=== PATIENT | female | born 1955 | race Caucasian/White ===

== ENCOUNTER → 2023-10-30 07:46 | Outpatient (REF) | payer MEDICARE, OTHER, SELFPAY | LOC: RAD 07:46 | PROVIDERS: ATTENDING PHYSICIAN Internal Medicine Hematology & Oncology; FAMILY PHYSICIAN Family Medicine | DX: C50.111 Malignant neoplasm of central portion of right female breast (principal); C79.51 Secondary malignant neoplasm of bone; C78.00 Secondary malignant neoplasm of unspecified lung; D53.9 Nutritional anemia, unspecified | CPT/HCPCS: 71260; 74177; 78306; A9503; Q9967 ==

== ENCOUNTER 2023-11-21 13:58 | Inpatient (IN) | payer OTHER, SELFPAY ==
[2023-11-21] VITALS (7 sets, daily range): BP systolic 121–192; BP diastolic 44–97; BMI 28.3
[2023-11-21 11:46] LABS: % Basophils 0.6 % (0-2); % Immature Granulocytes 0.6 % (0-0.5); % Lymphocytes 3.6 % (20.5-51.1); % Monocytes 3.6 % (1.7-9.3); % Neutrophils 91.6 % (42.2-75.2); Absolute Lymphocytes 0.2 10^3/uL (1.2-3.4); Absolute Monocytes 0.2 10^3/uL (0.1-0.6); Absolute Neutrophils 4.9 10^3/uL (1.4-6.5); Hematocrit 28.6 % (37.0-47.0); Hemoglobin 10.1 g/dL (12.0-16.0); Mean Corp Hgb Conc. 35.3 g/dL (33.0-37.0); Mean Corpuscular Hgb 36.5 pg (27.0-31.0); Mean Corpuscular Volume 103.2 fL (81.0-99.0); Mean Platelet Volume 9.4 fL (7.4-10.4); Nucleated Red Blood Cells % 0 %; Platelet Count 172 10^3/uL (130-400); Red Blood Cell Count 2.77 10^6/uL (4.20-5.40); Red Cell Dist. Width 16.1 % (11.5-14.5); White Blood Cell Count 5.3 10^3/uL (4.8-10.8)
--- NOTE | 2023-11-21 11:53 | PHANOTE ---
11/21/2023, med rec tech, spoke to pt. to obtain their med. history; pt. states to take Ibrance 125 mg QPM; could not confirm with pharmacy fill data or ECW.
[2023-11-21 12:04] LABS: Lactic Acid 2.7 mmol/L (0.7-2.0)
[2023-11-21 12:05] LABS: ALT (SGPT) 23 U/L (0-35); AST (SGOT) 26 U/L (14-36); Albumin 4.9 g/dl (3.5-5.0); Alkaline Phosphatase 64 U/L (38-126); Blood Urea Nitrogen 31 mg/dl (7-17); Calcium 9.9 mg/dl (8.4-10.2); Carbon Dioxide 19 mmol/L (22-30); Chloride 105 mmol/L (98-107); Glucose 155 mg/dl (70-99); Potassium 3.9 mmol/L (3.5-5.1); Sodium 137 mmol/L (135-145); Total Bilirubin 0.6 mg/dl (0.2-1.3); Total Protein 8.1 g/dl (6.3-8.2); eGFR 45.35
[2023-11-21 12:11] LABS: Urine Albumin 2+ (Neg - Trace); Urine Bilirubin Negative (Negative); Urine Character Very Cloudy (Clear); Urine Color Yellow; Urine Glucose Negative (Negative); Urine Ketone Negative (Negative); Urine Leukocyte 2+ (Negative); Urine Nitrite Positive (Negative); Urine Occult Blood 4+ (Negative); Urine Urobilinogen Negative (Neg - 1+)
[2023-11-21] MEDS: MAXIPIME 2000 MG IV ×2 (12:36→23:27)
[2023-11-21 12:43] LABS: COVID-19 Antigen Negative (Negative)
[2023-11-21 13:33] LABS: Urine Mucus Few; Urine Red Blood Cell >100 /HPF (0-2); Urine Squamous Cell 0-2 /LPF (Few)
[2023-11-21 13:34] LABS: Urine Bacteria Many (Negative); Urine White Cell 40-50 /HPF (0-5)
--- NOTE | 2023-11-21 13:41 | HPS.HSE ---
Addendum entered and electronically signed by Oniel Mccracken MD 11/22/23 08:05:
UA report updated.
have significant pyuria/bacteriuria - await urine cs report
maintain on abx
Original Note:
Family Physician
-
Family Physician: NOT KNOW UNKNOWN - PT DOES
Chief Complaint
-
Confusion, right leg paresthesia
History of Present Illness
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
having new onset of confusion and right leg paresthesia. Symptoms are relatively acute onset within 2 to 3 days. Patient pleasantly disoriented in ER but able to provide some information. Most of the information gathered from patient family at
bedside. No reported agitation or behavioral issues.
Patient complained some right leg paresthesia yesterday although currently denying any numbness to me. No other focal neurological deficit weakness reported. Patient does have some slurring of words slightly noted by family.
No shortness of breath/chest pain/palpitation. No abdominal complaints. Patient denies any dysuria/burning.
Medical History
Past Medical History
Past Medical History: Reports Other
Additional Past Medical History:
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
Past Surgical History: Reports Other
Social History
Tobacco: Former Smoker
Alcohol: None
Drug: None
Personal:
Living: With Family
Family History
Family History: Not pertinent
Allergies / Home Medications
Allergies reflects when Allergies were last updated in [facility]
Home Medications with original date entered in [facility]
Allergy/Medication List:
Allergies
Allergy/AdvReac Type Severity Reaction Status Date / Time
No Known Allergies Allergy Unverified 05/13/21 11:16
Home Medications
B-complex with vitamin C 1 cap PO DAILY Supplement 05/13/21
letrozole 2.5 mg tablet (Femara) 2.5 mg PO DAILY 10/28/21
palbociclib 125 mg tablet (Ibrance) 125 mg PO QPM 10/28/21
zinc amino acid chelate 50 mg tablet 50 mg PO DAILY 10/28/21
chlorhexidine gluconate 0.12 % mouthwash 15 ml buccal BID 11/21/23
cholecalciferol (vitamin D3) 25 mcg (1,000 unit) tablet 25 mcg PO DAILY 11/21/23
famotidine 40 mg tablet 40 mg PO QPM 11/21/23
guaifenesin 600 mg tablet, extended release 12 hr (Mucus Relief ER) 600 mg PO BID 11/21/23
naproxen sodium 220 mg tablet (Aleve) 220 mg PO DAILYPRN PRN mild pain 11/21/23
valsartan 160 mg-hydrochlorothiazide 25 mg tablet 1 tab PO QPM 11/21/23
Review of Systems
-
A 12 point ROS was completed and negative except as noted: Yes
Physical Exam
Vital Signs
Vital Signs
Temp Pulse Resp BP Pulse Ox
100.0 F 111 30 129/49 94
11/21/23 11:12 11/21/23 12:45 11/21/23 12:45 11/21/23 12:38 11/21/23 12:38
Physical Exam
General: No Apparent Distress
HEENT: Atraumatic; No Oxygen
Respiratory: Clear
Cardiac: S1/S2 and Regular Rhythm; No Murmur or Rub
GI: Soft, Non Tender, Non Distended and Normal Bowel Sounds; No Organomegaly
Rectal: Deferred by Provider
Musculoskeletal: No Clubbing, No Cyanosis and No Edema
Skin: No Rash
Neuro: Awake, Alert and Nonfocal/grossly intact; No Oriented
Psych: Calm
Laboratory Results
-
11/21/23 11:36
11/21/23 11:36
Laboratory Results
Lactic Acid 2.7 mmol/L (0.7-2.0) H 11/21/23 11:36
Total Bilirubin 0.6 mg/dl (0.2-1.3) 11/21/23 11:36
AST 26 U/L (14-36) 11/21/23 11:36
ALT 23 U/L (0-35) 11/21/23 11:36
Alkaline Phosphatase 64 U/L (38-126) 11/21/23 11:36
Data Reviewed
-
CT Scan: Image Personally Visualized and interpreted, Discussed with Patient and Discussed with Family
Lab Data: Labs Reviewed by me, Discussed with Patient and Discussed with Family
Impression/Plan
-
CT head
1. Focus of hypoattenuation within the right parietal lobe, measuring 1.2 cm in diameter, also likely unchanged. Infarct in this region is not excluded, consider MRI brain as clinically appropriate.
2. Mild cerebral atrophy.

1. Acute toxic metabolic encephalopathy
-New onset of confusion/disorientation and last 48-72 hrs
-Sepsis being ruled out with reported mild fever and tachycardia in ER. Immunosuppressed with immunotherapy.
-Chest x-ray showing pneumonia although in comparison to CT chest likely metastatic disease of lung
-UA did not show significant pyuria bacteriuria. Blood culture collected in ER.
-Patient not on any narcotic therapy.
-Have history of metastatic breast cancer involving lung/bone including calvarium -check MRI brain with and without contrast
-Continue supportive care
2. Sepsis
-Mild reported fever and tachycardia in ER.
-Patient on immuno therapy and high risk for infection
-COVID-negative. UA relatively clear
-Chest x-ray during his pneumonia and left lower lobe although metastatic disease and compared with CT scan from 10/29
-Blood culture collected
-Patient got cefepime in ER, continue for now.
3. Metastatic breast cancer
Metastasis involving lung/multiple bone
-Currently on letrozole and ibrance therapy
-f/us with [facility]
-Bone scan from past reviewed and have diffuse bony involvement
-Continue on ibrance/letrozole
4. Essential HTN
-Maintained on valsartan/hydrochlorothiazide
DVT prophylaxis -Lovenox
DNR/DNI -confirmed with patient and family bedside
Total time spent : 77 mins
I personally saw and examined the patient.
I have reviewed all diagnostic interpretations and treatment plans as written.
Time includes patient management by me, time spent at the patients bedside, time to review lab and imaging results, discussing patient care, documentation in the medical record, and time spent with the family or caregiver and discussing care plan
with RN/Consultants.
--- NOTE | 2023-11-21 14:20 | PHA.VAN.IN ---
Assessment
- Assessment
Renal Function: Unknown baseline
Concomitant Antimicrobials: cefepime
Plan
- Plan
Initial / Loading Dose: 2000mg - administration pending
Maintenance Regimen: dosing by level
Monitoring: random 11/21 0600
MRSA Screen: Ordered per protocol
Pharmacokinetics Vancomycin I
- -
Patient Age: 68
Patient Sex: Female
Vancomycin Day #: 1
Indication: Other
Requesting Provider: Dr. Mccracken
Pertinent Antimicrobial Allergies:
NKDA
Height / Weight:
Actual Weight 70.6 kg
Pertinent Past Medical History: Stage IV breast carcinoma
- Vital Signs / Lab Results
Temp Pulse Resp BP Pulse Ox
103.1 F H 111 30 129/49 94
11/21/23 13:58 11/21/23 12:45 11/21/23 12:45 11/21/23 12:38 11/21/23 12:38
Lab Results - Hematology
11/21/23
11:36
WBC 5.3
Lab Results - Chemistry
11/21/23
11:36
BUN 31 H
Creatinine 1.3 H
Albumin 4.9
11/21/23
11:36
Lactic Acid 2.7 H
Lab Results - Urine
11/21/23
12:01
Urine Nitrite (Reflex) Positive A
Leukocyte Esterase Rfl 2+ A
Urine WBC (Reflex) 40-50 A
Ur Squamous Epith Cells 0-2
Urine Bacteria (Reflex) Many A
Microbiology Results
11/21/23 11:47 Influenza Types A & B (MAEGAN) - Final
Nasal Swab Negative for Influenza A & B, NAAT
Negative results must be combined with clinical observations
and patient history.
Nucleic Acid Amplification test (NAAT)performed on the
[employer] platform.
[2023-11-21] MEDS: TYLENOL 650 MG PO ×2 (14:21→23:30)
--- NOTE | 2023-11-21 15:20 | PTCARENOTE ---
11/20- Patient transferred and oriented to unit without issue. Patient is currently AAOX3, no cognitive deficits currently observed; Neurological checks WNL with equal sensory/motor movementX4 extremities; +pulses/sensationX4; Skin CDI except a
fully granulated scab on R-hyman. Patient denies any needs or complaints at this time.
[2023-11-21] MEDS: MAXIPIME IV ×2 (16:13)
[2023-11-21] MEDS: STERILE WATER FOR INJECTION IV ×2 (16:13)
[2023-11-21] MEDS: LR 1000 IV (16:19)
[2023-11-21] MEDS: VANCOCIN 540 MG IV (16:19)
[2023-11-21] MEDS: DIOVAN 160 MG PO (17:00)
[2023-11-21] MEDS: ORETIC 25 MG PO (17:01)
[2023-11-21] MEDS: PEPCID 20 MG PO (17:01)
[2023-11-21] MEDS: LOVENOX SC (17:02)
[2023-11-21] MEDS: MUCINEX 600 MG PO (20:24)
[2023-11-21] MEDS: STERILE WATER FOR INJECTION 10 ML IV (23:27)
--- NOTE | 2023-11-22 07:50 | PTCARENOTE ---
11/21- Observed patient mildly diaphoretic with chills; flushed face, lethargic and arousable only with assertive tactile stimulus. She is AAOX3 but flat affect, slow response time. JS=219, Sinus Tachy on Telemetry, RR=12, BP-131/62, T=102.9,
POX=89% on RA. Qzavduewg=501. Notified Physician. Applied O2 via NC at 2L. POX returned to 94% on 2L. Patient currently on LR @60ml/hr pumping without issue at this time. Patient is awake enough to take AM pills as ordered along with PRN
Tylenol for the fever. Continue to Observe.
[2023-11-22] MEDS: FEMARA 2.5 MG PO (07:52)
[2023-11-22] MEDS: MUCINEX 600 MG PO ×2 (07:52→20:18)
[2023-11-22 08:03] LABS: Glucose - Point of Care 168 mg/dl (70-99)
[2023-11-22] MEDS: TYLENOL 650 MG PO (08:07)
--- NOTE | 2023-11-22 08:30 | PTCARENOTE ---
11/21- Patient is less clammy; no diaphoresis currently; Face is noticeably less flushed than earlier. Patient is still drowsy but much more alert, arousable verbally. T=101.5. POX=94% on 2L. Received Critical Result of G- Bacilli in Blood
Culture. Notified Physician. Continue to monitor.
--- NOTE | 2023-11-22 08:48 | CON.ONC ---
Impression
Impression
Stage IV metastatic breast cancer (liver, bone on Ibrance/Letrozole)
Invasive ductal carcinoma (2020)
Known growing lung nodule and new skull lesion
Acute change in mental status/TME
Lethargy
RLE paraesthesia
+E. Coli UTI
Sepsis
Tachycardia
Hypokalemia
Acute kidney injury
NSAID use
Plan
Plan
10/22/23 CA27.29: 27.2, stable
Brain MRI does not show metastatic disease
Urine culture + E. Coli
Continue antibiotics
11/21 WBC 3.2, Hgb 9.6, PLT 122
Monitor CBC with diff daily
Transfuse as needed to maintain Hgb >7, PLT >20 or >50 with active bleeding
Additional labs ordered and pending: B12/folate, iron panel, retic
HOLD Ibrance at this time (125mg daily x21 days then 7 days off)
Avoid further NSAIDs
[facility] office notified of patient's clinical status.
We will follow.
Patient History
History of Present Illness
Lynsey Chapman is a 68 year old female known to Dr. Shay with [facility] for history of stage IV breast cancer. She is maintained on Letrozole and Ibrance. She presented to the ER yesterday, 11/20, with family due to reports of acute change in mental
status and RLE paraesthesia x2-3 days. Patient was pleasantly disoriented in ER per documentation, however, she was unable to provide accurate history. Family did not report acute agitation or behavioral issues. No other focal neurological deficits
or weakness reported. Family notes slurred speech at times. Denied SOB, chest pain, abdominal pain, or dysuria in the ER. Urinalysis positive for nitrites. She has been admitted for further evaluation and treatment.
Past-Medical/Surgical History
Stage IV breast carcinoma metastatic to bone/lungs (2020)
Hx of malignant effusion ([id number])
Hypertension
GERD
Former smoker
Nutritional anemia
NSAID use
Lung nodule
Skull lesion
Patient Medication
�Medication �Instructions �Recorded �Confirmed �Last Taken �Type
B-complex with vitamin C 1 cap PO DAILY Supplement 05/13/21 11/21/23 11/20/23 History
letrozole 2.5 mg tablet (Femara) 2.5 mg PO DAILY 10/28/21 11/21/23 11/20/23 History
palbociclib 125 mg tablet (Ibrance) 125 mg PO UD 10/28/21 11/21/23 11/20/23 History
zinc amino acid chelate 50 mg 50 mg PO DAILY 10/28/21 11/21/23 11/20/23 History
tablet
chlorhexidine gluconate 0.12 % 15 ml buccal BID 11/21/23 11/21/23 11/20/23 History
mouthwash
cholecalciferol (vitamin D3) 25 25 mcg PO DAILY 11/21/23 11/21/23 11/20/23 History
mcg (1,000 unit) tablet
famotidine 40 mg tablet 40 mg PO QPM 11/21/23 11/21/23 11/20/23 History
guaifenesin 600 mg tablet, 600 mg PO BID 11/21/23 11/21/23 11/20/23 History
extended release 12 hr (Mucus
Relief ER)
naproxen sodium 220 mg tablet 220 mg PO DAILYPRN PRN mild pain 11/21/23 11/21/23 11/20/23 History
(Aleve)
valsartan 160 1 tab PO QPM 11/21/23 11/21/23 11/20/23 History
mg-hydrochlorothiazide 25 mg tablet
Active Medications
Generic Name Dose Route Start Last Admin
Trade Name Freq PRN Reason Stop Dose Admin
Acetaminophen 650 mg 11/21/23 14:07 11/22/23 08:07
Acetaminophen 325 Mg Tablet PO 12/19/23 14:06 650 mg
Q4HPRN PRN Administration
mild pain/RICO/temp> 100.4F
Acetaminophen 650 mg 11/22/23 08:02
Acetaminophen 650 Mg Rectal Suppository RECTAL 12/20/23 08:01
Q4HPRN PRN
Temp > 100.4F
Bisacodyl 10 mg 11/21/23 15:20
Bisacodyl 10 Mg Rectal Suppository RECTAL 12/19/23 15:19
H92OGPM PRN
constipation
Cefepime HCl 2,000 mg 11/21/23 00:00 11/21/23 23:27
Cefepime Hcl 2,000 Mg/12.5 Ml Vial IV 2,000 mg
Q12H LIZ Administration
Enoxaparin Sodium 40 mg 11/21/23 18:00 11/21/23 17:02
Enoxaparin Sodium 40 Mg/0.4 Ml Syringe SC 12/19/23 17:59 Not Given
QPM LIZ
Famotidine 20 mg 11/21/23 18:00 11/21/23 17:01
Famotidine 20 Mg Tablet PO 12/19/23 17:59 20 mg
QPM LIZ Administration
Guaifenesin 600 mg 11/21/23 20:00 11/22/23 07:52
Guaifenesin 600 Mg Extended Release Tablet PO 12/19/23 19:59 600 mg
BID LIZ Administration
Hydrochlorothiazide 25 mg 11/21/23 18:00 11/21/23 17:01
Hydrochlorothiazide 25 Mg Tablet PO 12/19/23 17:59 25 mg
QPM LIZ Administration
Vancomycin HCl 1 each/ Device 0 mls @ 0 mls/hr 11/21/23 16:00
IV
PER PROTOCOL LIZ
Protocol
As Directed
Lactated Ringer's 1,000 mls @ 60 mls/hr 11/21/23 15:20 11/21/23 16:19
Lr IV 1,000 mls
.[id number] LIZ Administration
Letrozole 2.5 mg 11/22/23 08:00 11/22/23 07:52
Letrozole 2.5 Mg (Non-Form) Tablet PO 12/20/23 07:59 2.5 mg
DAILY LIZ Administration
Non-Formulary Medication 125 mg 11/21/23 18:00
Palbociclib [Ibrance] PO 12/19/23 17:59
QPM LIZ
Ondansetron HCl 4 mg 11/21/23 15:20
Ondansetron 4 Mg/2 Ml Vial IV 12/19/23 15:19
Q6HPRN PRN
nausea and vomiting
Polyethylene Glycol 17 grams 11/21/23 15:20
Polyethylene Glycol Powder 17 Grams Packet PO 12/19/23 15:19
DAILYPRN PRN
constipation
Senna/Docusate Sodium 1 tablet 11/21/23 15:20
Docusate W/Senna (Elizabeth-Colace) Tablet PO 12/19/23 15:19
BIDPRN PRN
constipation
Sodium Chloride 0 flush 11/21/23 15:00
Sodium Chloride 0.9% (Flush) Syringe IV 12/19/23 14:59
PER PROTOCOL LIZ
Sterile Water 10 ml 11/21/23 00:00 11/21/23 23:27
Sterile Water For Injection 10 Ml Vial IV 12/19/23 00:00 10 ml
Q12H LIZ Administration
Valsartan 160 mg 11/21/23 18:00 11/21/23 17:00
Valsartan 80 Mg Tablet PO 12/19/23 17:59 160 mg
QPM LIZ Administration
Review of Systems
-
Unable to obtain ROS
Unable to obtain full review of systems at this time due to: Acuity
History Source: Family, Coordinated Provider and Records
Physical Exam
-
Patient is asleep in bed. Did not arouse to voice or touch.
General: No Apparent Distress and Appears Chronically Ill; Negative Conversant
HEENT: Negative Jaundice
Cardiology: Other (tachycardia)
Pulmonary: Wheezes (scattered)
Labs
Lab Results
WBC 5.3 10^3/uL (4.8-10.8) 11/21/23 11:36
RBC 2.77 10^6/uL (4.20-5.40) L 11/21/23 11:36
Hgb 10.1 g/dL (12.0-16.0) L 11/21/23 11:36
Hct 28.6 % (37.0-47.0) L 11/21/23 11:36
MCV 103.2 fL (81.0-99.0) H 11/21/23 11:36
MCH 36.5 pg (27.0-31.0) H 11/21/23 11:36
MCHC 35.3 g/dL (33.0-37.0) 11/21/23 11:36
RDW 16.1 % (11.5-14.5) H 11/21/23 11:36
Plt Count 172 10^3/uL (130-400) 11/21/23 11:36
MPV 9.4 fL (7.4-10.4) 11/21/23 11:36
Abs Immat Gran (auto) 0.0 10^3/uL (0-0.05) 11/21/23 11:36
Absolute Neuts (auto) 4.9 10^3/uL (1.4-6.5) 11/21/23 11:36
Absolute Lymphs (auto) 0.2 10^3/uL (1.2-3.4) L 11/21/23 11:36
Absolute Monos (auto) 0.2 10^3/uL (0.1-0.6) 11/21/23 11:36
Absolute Eos (auto) 0.0 10^3/uL (0-0.7) 11/21/23 11:36
Absolute Basos (auto) 0.0 10^3/uL (0-0.2) 11/21/23 11:36
Immature Gran % 0.6 % (0-0.5) H 11/21/23 11:36
Neutrophils % 91.6 % (42.2-75.2) H 11/21/23 11:36
Lymphocytes % 3.6 % (20.5-51.1) L 11/21/23 11:36
Monocytes % 3.6 % (1.7-9.3) 11/21/23 11:36
Eosinophils % 0.0 % (0-6) 11/21/23 11:36
Basophils % 0.6 % (0-2) 11/21/23 11:36
Creatinine 1.3 mg/dL (0.6-1.0) H 11/21/23 11:36
Vital Signs
Vital Signs
Temp Pulse Resp BP Pulse Ox
99.1 F 108 18 140/65 91
11/22/23 02:51 11/21/23 23:00 11/21/23 23:00 11/21/23 23:00 11/21/23 23:00
11/21/23 CXR: Rounded opacity within the left lower lobe, new compared to prior chest x-ray. Findings may represent pneumonia, subsegmental atelectasis, and/or pulmonary metastasis. No significant pleural effusion on either side
11/21/23 Brain MRI: No evidence to suggest intracranial metastatic disease. Sclerotic osseous calvarial metastatic lesions are noted. Minor chronic microvascular white matter ischemic change. No acute infarct.
11/21/23: Renal US: No hydronephrosis on either side. No posterior acoustic shadowing demonstrated to suggest nephrolithiasis. Ureteral jets were not visualized.
11/21/[address]: Focus of hypoattenuation within the right parietal lobe, measuring 1.2 cm in diameter, also likely unchanged. Infarct in this region is not excluded, consider MRI brain as clinically appropriate. Mild cerebral atrophy.
[2023-11-22] MEDS: LR 1000 IV (09:01)
[2023-11-22 09:19] LABS: Hematocrit 27.3 % (37.0-47.0); Hemoglobin 9.6 g/dL (12.0-16.0); Mean Corp Hgb Conc. 35.2 g/dL (33.0-37.0); Mean Corpuscular Hgb 36.1 pg (27.0-31.0); Mean Corpuscular Volume 102.6 fL (81.0-99.0); Platelet Count 122 10^3/uL (130-400); Red Blood Cell Count 2.66 10^6/uL (4.20-5.40); Red Cell Dist. Width 16.1 % (11.5-14.5); White Blood Cell Count 3.2 10^3/uL (4.8-10.8)
[2023-11-22 09:35] LABS: Vancomycin Random 12.1 ug/ml
[2023-11-22 09:52] LABS: Blood Urea Nitrogen 34 mg/dl (7-17); Carbon Dioxide 15 mmol/L (22-30); Chloride 105 mmol/L (98-107); Estimated Creatinine Clearance 38 ml/min; Glucose 154 mg/dl (70-99); Potassium 3.2 mmol/L (3.5-5.1); Sodium 137 mmol/L (135-145); eGFR 45.35
[2023-11-22] MEDS: STERILE WATER FOR INJECTION 10 ML IV (11:37)
[2023-11-22] MEDS: KCL 20 MEQ PO (11:37)
[2023-11-22] MEDS: MAXIPIME 2000 MG IV (11:37)
[2023-11-22 13:15] LABS: Lactic Acid 1.4 mmol/L (0.7-2.0)
[2023-11-22 13:28] LABS: Iron 33 ug/dl (37-170)
[2023-11-22 13:38] LABS: Percent Saturation 11 % (20-50); Total Iron Binding Capacity 277 ug/dl (265-497)
--- NOTE | 2023-11-22 13:59 | CM ---
Patient seen bedside with , son, daughter in law, and grandson, initial assessment completed. Patient resides with family in a condo, 12 steps to enter. Patient has a cane and nocturnal O2 through [facility]. Patient denies VN or SNF,
confirms prescription coverage. Patient PCP [facility], pharmacy [facility]. CM will continue to follow for discharge planning needs.
Plan; home no needs, watch for PT/OT evals.
--- NOTE | 2023-11-22 15:13 | W.PN.HOSP.TC ---
Today's Communication/Plan
-
f/u blood and urine cs report
f/u blood cs ordered for today
maintain on cefepime
Assessment / Plan
Assessment / Plan
1. Acute toxic metabolic encephalopathy
-New onset of confusion/disorientation and last 48-72 hrs
-Likely from UTI and sepsis.
-MRI brain with and without contrast ruled out any metastatic disease
2. Sepsis from Ecoli UTI
Gram neg Bacteremia - suspecting Ecoli as well
-Mild reported fever and tachycardia in ER.
-Patient on immuno therapy and high risk for infection
-COVID-negative. UA showing pyuria and bacteriuria
-Urine culture growing E. coli and blood cultures growing gram-negative bacilli. Identification and susceptibility pending.
-Chest x-ray during his pneumonia and left lower lobe although metastatic disease and compared with CT scan from 10/29
-Patient got cefepime in ER, continue for now.
3. Metastatic breast cancer
Metastasis involving lung/multiple bone
-Currently on letrozole and ibrance therapy
-f/us with [facility]
-Bone scan from past reviewed and have diffuse bony involvement
-Continue on ibrance/letrozole
4. Essential HTN
-Maintained on valsartan/hydrochlorothiazide
DVT prophylaxis -Lovenox
DNR/DNI -confirmed with patient and family bedside
Anticipated Discharge: > 48 hours
Subjective/Interval History
-
Date of Service: November 22, 2023
Patient spiking fever later in the evening yesterday
Remains communicative , slow to respond at times
No acute issues reported
Objective Data
-
Labs:
Laboratory Results
11/22/23
08:38
WBC 3.2 L
Hgb 9.6 L
Hct 27.3 L
Plt Count 122 L D
Sodium 137
Potassium 3.2 L
Chloride 105
Carbon Dioxide 15 L
BUN 34 H
Creatinine 1.3 H
Glucose 154 H
Calcium 9.0
Vital Signs:
Vital Signs
Temp Pulse Resp BP Pulse Ox
99.1 F 108 18 140/65 94
11/22/23 02:51 11/21/23 23:00 11/21/23 23:00 11/21/23 23:00 11/22/23 07:50
I&O
11/21/23 11/22/23 11/23/23
06:59 06:59 06:59
Intake Total 480 / 480
Balance 480 / 480
Review of Systems
-
Respiratory: Reports No Symptoms
Cardiac: Reports No Symptoms
Abdomen/GI: Reports No Symptoms
Physical Exam
-
General: Comfortable and Obese
HEENT: Oxygen
Respiratory: Clear to Auscultation
Cardiac: Regular Rhythm and S1/S2; Negative Murmur or Rub
GI: Soft, Nontender and Nondistended
Musculoskeletal: No Edema
Neuro: Awake, Alert, No Motor Deficits and Nonfocal/Grossly Intact
Psych: Calm
[2023-11-22 15:33] LABS: Folate > 20.0 ng/ml (2.76-20); Vitamin B12 434 pg/ml (239-931)
[2023-11-22] MEDS: SODIUM BICARBONATE 650 MG PO ×2 (15:53→20:59)
[2023-11-22 16:00] VITALS: BP 106/52
[2023-11-22] MEDS: DIOVAN 160 MG PO (16:58)
[2023-11-22] MEDS: PEPCID 20 MG PO (16:58)
[2023-11-22] MEDS: ORETIC 25 MG PO (16:58)
[2023-11-22] MEDS: LOVENOX SC (16:58)
[2023-11-22 23:46] VITALS: BP 140/63
[2023-11-23] MEDS: STERILE WATER FOR INJECTION 10 ML IV ×2 (00:07→11:31)
[2023-11-23] MEDS: MAXIPIME 2000 MG IV (00:07)
[2023-11-23] MEDS: LR 1000 IV (00:15)
[2023-11-23] MEDS: TYLENOL 650 MG PO ×2 (00:15→11:40)
[2023-11-23 08:09] VITALS: BP 124/57
[2023-11-23] MEDS: SODIUM BICARBONATE 650 MG PO ×3 (08:56→20:29)
[2023-11-23] MEDS: FEMARA 2.5 MG PO (08:57)
[2023-11-23] MEDS: MUCINEX 600 MG PO ×2 (08:57→20:30)
[2023-11-23 08:59] LABS: Hematocrit 26.5 % (37.0-47.0); Hemoglobin 9.5 g/dL (12.0-16.0); Mean Corp Hgb Conc. 35.8 g/dL (33.0-37.0); Mean Corpuscular Hgb 36.3 pg (27.0-31.0); Mean Corpuscular Volume 101.1 fL (81.0-99.0); Platelet Count 142 10^3/uL (130-400); Red Blood Cell Count 2.62 10^6/uL (4.20-5.40); White Blood Cell Count 5.8 10^3/uL (4.8-10.8)
[2023-11-23 09:37] LABS: Blood Urea Nitrogen 39 mg/dl (7-17); Calcium 8.6 mg/dl (8.4-10.2); Carbon Dioxide 18 mmol/L (22-30); Chloride 104 mmol/L (98-107); Estimated Creatinine Clearance 44 ml/min; Glucose 86 mg/dl (70-99); Potassium 3.3 mmol/L (3.5-5.1); Sodium 135 mmol/L (135-145); eGFR 55.42
[2023-11-23] MEDS: ROCEPHIN 1000 MG IV (11:31)
[2023-11-23] MEDS: KCL 20 MEQ PO (11:31)
[2023-11-23] MEDS: FLUSH (NSS) 1 FLUSH IV ×2 (11:32→12:06)
--- NOTE | 2023-11-23 12:33 | CM ---
Patient seen bedside, reports no needs to CM at this time. CM will follow for discharge planning needs, watch for PT/OT evaluations.
Plan; home no needs, watch for PT/OT evaluations for VN needs.
[2023-11-23 15:58] VITALS: BP 126/56
--- NOTE | 2023-11-23 16:27 | W.PN.HOSP.TC ---
Today's Communication/Plan
-
pt/ot
change abx to rocephin
continue ivf
Assessment / Plan
Assessment / Plan
1. Acute toxic metabolic encephalopathy
-New onset of confusion/disorientation and last 48-72 hrs
-Likely from UTI and sepsis.
-MRI brain with and without contrast ruled out any metastatic disease
2. Sepsis from Ecoli UTI
Ecoli bacteremia
-Mild reported fever and tachycardia in ER.
-Patient on immuno therapy and high risk for infection
-COVID-negative. UA showing pyuria and bacteriuria
-Urine culture growing E. coli and blood cultures growing gram-negative bacilli. Identification and susceptibility pending.
-Chest x-ray during his pneumonia and left lower lobe although metastatic disease and compared with CT scan from 10/29
-Changing abx to rocephin
3. Metastatic breast cancer
Metastasis involving lung/multiple bone
-Currently on letrozole and ibrance therapy
-f/us with [facility]
-Bone scan from past reviewed and have diffuse bony involvement
-Continue on ibrance/letrozole
4. Essential HTN
-Maintained on valsartan/hydrochlorothiazide
DVT prophylaxis -Lovenox
DNR/DNI -confirmed with patient and family bedside
Anticipated Discharge: 24 - 48 hours
Subjective/Interval History
-
Date of Service: November 23, 2023
Afebrile overnight
Feeling subjectively better
No reported acute events.
Objective Data
-
Labs:
Laboratory Results
11/23/23
08:07
WBC 5.8
Hgb 9.5 L
Hct 26.5 L
Plt Count 142
Sodium 135
Potassium 3.3 L
Chloride 104
Carbon Dioxide 18 L
BUN 39 H
Creatinine 1.1 H
Glucose 86
Calcium 8.6
Vital Signs:
Vital Signs
Temp Pulse Resp BP Pulse Ox
98.8 F 85 16 126/56 97
11/23/23 15:58 11/23/23 15:58 11/23/23 15:58 11/23/23 15:58 11/23/23 15:58
I&O
11/22/23 11/23/23 11/24/23
06:59 06:59 06:59
Intake Total 480 / 480 720 / 720
Balance 480 / 480 720 / 720
Review of Systems
-
Respiratory: Reports No Symptoms
Cardiac: Reports No Symptoms
Abdomen/GI: Reports No Symptoms
Physical Exam
-
General: Comfortable and Obese
HEENT: Oxygen
Respiratory: Clear to Auscultation
Cardiac: Regular Rhythm and S1/S2; Negative Murmur or Rub
GI: Soft, Nontender and Nondistended
Musculoskeletal: No Edema
Neuro: Awake, Alert, No Motor Deficits and Nonfocal/Grossly Intact
Psych: Calm
[2023-11-23] MEDS: ORETIC 25 MG PO (17:09)
[2023-11-23] MEDS: DIOVAN 160 MG PO (17:09)
[2023-11-23] MEDS: PEPCID 20 MG PO (17:09)
[2023-11-23] MEDS: LOVENOX 40 MG SC (17:12)
[2023-11-23 23:00] VITALS: BP 132/51
[2023-11-24] MEDS: TYLENOL 650 MG PO ×2 (00:22→23:09)
[2023-11-24] MEDS: LR 1000 IV ×2 (02:20→12:56)
[2023-11-24] MEDS: LR IV (02:22)
[2023-11-24 07:10] VITALS: BP 127/54
[2023-11-24 08:34] LABS: Hematocrit 25.5 % (37.0-47.0); Mean Corp Hgb Conc. 35.3 g/dL (33.0-37.0); Mean Corpuscular Hgb 36.6 pg (27.0-31.0); Mean Corpuscular Volume 103.7 fL (81.0-99.0); Mean Platelet Volume 10.6 fL (7.4-10.4); Platelet Count 142 10^3/uL (130-400); Red Blood Cell Count 2.46 10^6/uL (4.20-5.40); Red Cell Dist. Width 15.8 % (11.5-14.5); White Blood Cell Count 5.6 10^3/uL (4.8-10.8)
[2023-11-24 08:36] LABS: Blood Urea Nitrogen 30 mg/dl (7-17); Calcium 8.3 mg/dl (8.4-10.2); Carbon Dioxide 25 mmol/L (22-30); Chloride 101 mmol/L (98-107); Estimated Creatinine Clearance 44 ml/min; Glucose 89 mg/dl (70-99); Potassium 3.2 mmol/L (3.5-5.1); Sodium 134 mmol/L (135-145); eGFR 55.42
[2023-11-24] MEDS: MUCINEX 600 MG PO ×2 (08:46→21:30)
[2023-11-24] MEDS: KCL 20 MEQ PO ×2 (08:46→16:44)
[2023-11-24] MEDS: SODIUM BICARBONATE 650 MG PO (08:46)
[2023-11-24] MEDS: FEMARA 2.5 MG PO (08:46)
[2023-11-24 10:40] VITALS: BP 128/64; PULSE 94
[2023-11-24 12:11] VITALS: BP 128/64; PULSE 94
[2023-11-24] MEDS: STERILE WATER FOR INJECTION 10 ML IV (12:34)
[2023-11-24] MEDS: ROCEPHIN 1000 MG IV (12:34)
[2023-11-24] MEDS: FLUSH (NSS) 1 FLUSH IV ×4 (12:35→12:55)
[2023-11-24 15:00] VITALS: BP 136/63
--- NOTE | 2023-11-24 15:18 | W.PN.HOSP.TC ---
Today's Communication/Plan
-
continue iv abx
repeat blood cs neg for 24 hrs
possible discharge tomorrow
Assessment / Plan
Assessment / Plan
1. Acute toxic metabolic encephalopathy - Improving
-New onset of confusion/disorientation and last 48-72 hrs
-Likely from UTI and sepsis.
-MRI brain with and without contrast ruled out any metastatic disease
-Mentation much clearer today.
2. Sepsis from Ecoli UTI
Ecoli bacteremia
-Mild reported fever and tachycardia in ER.
-Patient on immuno therapy and high risk for infection
-COVID-negative. UA showing pyuria and bacteriuria
-Urine culture growing E. coli and blood cultures growing gram-negative bacilli. Identification and susceptibility pending.
-Chest x-ray during his pneumonia and left lower lobe although metastatic disease and compared with CT scan from 10/29
-Changing abx to rocephin
3. Metastatic breast cancer
Metastasis involving lung/multiple bone
-Currently on letrozole and ibrance therapy
-f/us with [facility]
-Bone scan from past reviewed and have diffuse bony involvement
-Continue on ibrance/letrozole
4. Essential HTN
-Maintained on valsartan/hydrochlorothiazide
5. Macrocytic anemia
-presumed chemo/immunotherpay related
6. Hyponatremia
-mild. monitor.
7. CKD stage IIIA
-close to baseline, monitor
DVT prophylaxis -Lovenox
DNR/DNI -confirmed with patient and family bedside
Anticipated Discharge: Within 24 hours
Subjective/Interval History
-
Date of Service: November 24, 2023
no issues overnight
Objective Data
-
Labs:
Laboratory Results
11/24/23
07:12
WBC 5.6
Hgb 9.0 L
Hct 25.5 L
Plt Count 142
Sodium 134 L
Potassium 3.2 L
Chloride 101
Carbon Dioxide 25
BUN 30 H
Creatinine 1.1 H
Glucose 89
Calcium 8.3 L
Vital Signs:
Vital Signs
Temp Pulse Resp BP Pulse Ox
98.5 F 76 26 127/54 100
11/24/23 07:10 11/24/23 07:10 11/24/23 07:10 11/24/23 07:10 11/24/23 07:10
I&O
11/23/23 11/24/23 11/25/23
06:59 06:59 06:59
Intake Total 720 / 720 240 / 240
Balance 720 / 720 240 / 240
Review of Systems
-
Respiratory: Reports No Symptoms
Cardiac: Reports No Symptoms
Abdomen/GI: Reports No Symptoms
Physical Exam
-
General: Comfortable and Obese
HEENT: Oxygen
Respiratory: Clear to Auscultation
Cardiac: Regular Rhythm and S1/S2; Negative Murmur or Rub
GI: Soft, Nontender and Nondistended
Musculoskeletal: No Edema
Neuro: Awake, Alert, No Motor Deficits and Nonfocal/Grossly Intact
Psych: Calm
[2023-11-24] MEDS: DIOVAN 160 MG PO (16:44)
[2023-11-24] MEDS: ORETIC 25 MG PO (16:45)
[2023-11-24] MEDS: PEPCID 20 MG PO (16:45)
[2023-11-24] MEDS: LOVENOX 40 MG SC (16:45)
[2023-11-24 23:08] VITALS: BP 124/56
[2023-11-25 07:59] VITALS: BP 118/55
[2023-11-25] MEDS: FEMARA 2.5 MG PO (08:08)
[2023-11-25] MEDS: KCL 20 MEQ PO (08:08)
[2023-11-25] MEDS: MUCINEX 600 MG PO ×2 (08:08→21:54)
[2023-11-25] MEDS: ROCEPHIN 1000 MG IV ×2 (11:57→14:42)
[2023-11-25] MEDS: STERILE WATER FOR INJECTION 10 ML IV ×3 (11:58→16:59)
[2023-11-25] MEDS: FLUSH (NSS) 1 FLUSH IV ×4 (11:59→12:12)
--- NOTE | 2023-11-25 13:41 | W.PN.HOSP.TC ---
Today's Communication/Plan
-
switch to 2gm ceftriaxone
ID consulted
Monitor fever curve
Assessment / Plan
Assessment / Plan
1. Acute toxic metabolic encephalopathy - Improving
-New onset of confusion/disorientation and last 48-72 hrs
-Likely from UTI and sepsis.
-MRI brain with and without contrast ruled out any metastatic disease�unremarkable
-Mentation much clearer
# Sepsis from Ecoli UTI
Ecoli bacteremia
-Mild reported fever and tachycardia in ER.
-Patient on immuno therapy and high risk for infection
-COVID-negative. UA showing pyuria and bacteriuria
-Urine culture growing E. coli and blood cultures growing gram-negative bacilli. Ecoli - Switch to 2gm Ceftriaxone
-still spiking temps - immunocompromised as on chemo (received last week)
-Consult ID
# Metastatic breast cancer
Metastasis involving lung/multiple bone
-Currently on letrozole and ibrance therapy
-f/us with [facility]
-Bone scan from past reviewed and have diffuse bony involvement
-Continue on ibrance/letrozole
-F/u outpatient
-hold on further chemo until course of abx completed
# Essential HTN
-Maintained on valsartan/hydrochlorothiazide
#. Macrocytic anemia
-presumed chemo/immunotherpay related
#. Hyponatremia
-mild. monitor.
#Hypokalemia
-monitor and replete
# CKD stage IIIA
-close to baseline, monitor
DVT prophylaxis -Lovenox
DNR/DNI -confirmed with patient and family bedside
Anticipated Discharge: 24 - 48 hours
Subjective/Interval History
-
Date of Service: November 25, 2023
Still spiking recurrent fevers, mild
Objective Data
-
Vital Signs:
Vital Signs
Temp Pulse Resp BP Pulse Ox
98.2 F 76 20 118/55 98
11/25/23 07:59 11/25/23 07:59 11/25/23 07:59 11/25/23 07:59 11/25/23 07:59
I&O
11/24/23 11/25/23 11/26/23
06:59 06:59 06:59
Intake Total 240 / 240 1800 / 1800 240 / 240
Balance 240 / 240 1800 / 1800 240 / 240
Review of Systems
-
History Source: Patient
All other systems: Not reviewed unless documented
Physical Exam
-
General: Comfortable and Obese
HEENT: Oxygen
Respiratory: Clear to Auscultation
Cardiac: Regular Rhythm and S1/S2; Negative Murmur or Rub
GI: Soft, Nontender and Nondistended
Musculoskeletal: No Edema
Neuro: Awake, Alert, No Motor Deficits and Nonfocal/Grossly Intact
Psych: Calm
Data Reviewed
-
Diagnostic Radiology: Image personally visualized and interpreted and Report Reviewed by me
MRI: Report Reviewed by me
[2023-11-25] MEDS: KCL ELIXIR 40 MEQ PO (14:40)
[2023-11-25] MEDS: ROCEPHIN 2000 MG IV (14:59)
[2023-11-25 15:02] VITALS: BP 140/83
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
[2023-11-25] MEDS: ORETIC 25 MG PO (17:06)
[2023-11-25] MEDS: LOVENOX 40 MG SC (17:06)
[2023-11-25] MEDS: PEPCID 20 MG PO (17:06)
[2023-11-25] MEDS: DIOVAN 160 MG PO (17:07)
[2023-11-25 23:15] VITALS: BP 101/41
[2023-11-26 07:52] VITALS: BP 116/53
[2023-11-26] MEDS: KCL 20 MEQ PO (09:01)
[2023-11-26] MEDS: MUCINEX 600 MG PO (09:01)
[2023-11-26] MEDS: FEMARA 2.5 MG PO (09:01)
[2023-11-26 10:16] VITALS: BP 130/72; BP 178/79; PULSE 82; O2SAT 98
[2023-11-26 10:26] LABS: Hematocrit 26.1 % (37.0-47.0); Mean Corp Hgb Conc. 34.5 g/dL (33.0-37.0); Mean Corpuscular Hgb 35.7 pg (27.0-31.0); Mean Corpuscular Volume 103.6 fL (81.0-99.0); Mean Platelet Volume 10.9 fL (7.4-10.4); Platelet Count 218 10^3/uL (130-400); Red Blood Cell Count 2.52 10^6/uL (4.20-5.40); Red Cell Dist. Width 16.1 % (11.5-14.5); White Blood Cell Count 4.2 10^3/uL (4.8-10.8)
--- NOTE | 2023-11-26 11:43 | W.PN.ID1 ---
Date of Service
Date of Service: November 26, 2023
Today's Communication
Transition to oral cefdinir. See below�
Assessment / Plan
E. coli bacteremia
Complicated urinary tract infection secondary to E. coli
CKD
Breast CA (stage IV; mets to bone/lung)
HTN
GERD
Recommendations:
Transition to oral cefdinir 300 mg BID, to complete a 10-day course of antibiotics (through 12/02/23)
Chief Complaint
-: UTI and Bacteremia
Subjective / Review of Systems
Review of Systems: No Fever, No Chills and No Dysuria
Vital Signs / Physical Exam
Vital Signs
Vital Signs
Temp Pulse Resp BP Pulse Ox
98.2 F 86 16 116/53 98
11/26/23 07:52 11/26/23 07:52 11/26/23 07:52 11/26/23 07:52 11/26/23 07:52
Physical Exam
Constitutional: No Acute Distress, Comfortable and Non-toxic
Eyes: No Conjunctival Hemorrhage and Sclera Anicteric
Cardiovascular: S1/S2; Negative S3/S4
Pulmonary: Clear
Gastrointestinal: Soft and Non Tender
Neurological: Awake and Alert
Psychological: Calm
Objective Data
Lab Data
Lab Results
11/26/23 09:19
Estimated Creat Clear 44 ml/min 11/24/23 07:12
Lactic Acid 1.4 mmol/L (0.7-2.0) 11/22/23 12:48
Total Bilirubin 0.6 mg/dl (0.2-1.3) 11/21/23 11:36
AST 26 U/L (14-36) 11/21/23 11:36
ALT 23 U/L (0-35) 11/21/23 11:36
Alkaline Phosphatase 64 U/L (38-126) 11/21/23 11:36
Most recent labs reviewed.
Micro Results:
11/22/23 15:53 Blood Culture - Preliminary
Blood/Venous No Growth in 72 hours- Final report to follow
11/21/23 11:47 Blood Culture - Preliminary
Blood/Venous No Growth in 4 days- Final report to follow
11/21/23 11:36 Blood Culture - Preliminary
Blood/Venous Escherichia coli
Gram Stain - Preliminary
11/21/23 12:01 Urine Culture - Final
Urine Escherichia coli
11/22/23 03:02 Nasal Screen MRSA (PCR) - Final
Nose MRSA not detected - performed by PCR methodology.
11/21/23 11:47 Influenza Types A & B (MAEGAN) - Final
Nasal Swab Negative for Influenza A & B, NAAT
Negative results must be combined with clinical observations
and patient history.
Nucleic Acid Amplification test (NAAT)performed on the
[employer] platform.
Imaging:
11/21/2023 Renal ultrasound with bladder: No hydronephrosis noted. No shadowing demonstrated to suggest nephrolithiasis.
--- NOTE | 2023-11-26 11:49 | W.PN.HOSP.TC ---
Addendum entered and electronically signed by Henri Loving MD 11/27/23 15:49:
[id number]
Addendum entered and electronically signed by Henri Loving MD 11/26/23 12:55:
patient wants to leave prior to bmp from coming back. Understands risks. Will provide Kcl now, and dc - should have close bmp in 3 days
Original Note:
Today's Communication/Plan
-
cefdinir to complete 10-day course of antibiotics total
bmp in 3-5 days with pcp
f/u pcp, onc outpatient
Assessment / Plan
Assessment / Plan
1. Acute toxic metabolic encephalopathy - Improving
-New onset of confusion/disorientation and last 48-72 hrs
-Likely from UTI and sepsis.
-MRI brain with and without contrast ruled out any metastatic disease�unremarkable
-Mentation much clearer
# Sepsis from Ecoli UTI
Ecoli bacteremia
-Mild reported fever and tachycardia in ER.
-Patient on immuno therapy and high risk for infection
-COVID-negative. UA showing pyuria and bacteriuria
-Urine culture growing E. coli and blood cultures growing gram-negative bacilli. Ecoli -ceftriaxone, discharged on cefdinir to complete 10-day course of antibiotics total
�Kilgore defervesced
-Consult ID
# Metastatic breast cancer
Metastasis involving lung/multiple bone
-Currently on letrozole and ibrance therapy
-f/us with [facility]
-Bone scan from past reviewed and have diffuse bony involvement
-Continue on ibrance/letrozole
-F/u outpatient
-hold on further chemo until course of abx completed
# Essential HTN
-Maintained on valsartan/hydrochlorothiazide
#. Macrocytic anemia
-presumed chemo/immunotherpay related
#. Hyponatremia
-mild. monitor.
#Hypokalemia
-monitor and replete
�Monitor BMP in 3 to 5 days with PCP
# CKD stage IIIA
-close to baseline, monitor
DVT prophylaxis -Lovenox
DNR/DNI -confirmed with patient and family bedside
More than 30 minutes spent in discharge including
Final examination of the patient
Summarizing hospital stay
Instructions for continuing care to all relevant caregivers
Preparation of discharge records, prescriptions, and referral forms
Total time spent (35 in minutes):
Anticipated Discharge: Today
Subjective/Interval History
-
Date of Service: November 26, 2023
no acute events; defervesced
Objective Data
-
Labs:
Laboratory Results
11/26/23
09:19
WBC 4.2 L
Hgb 9.0 L
Hct 26.1 L
Plt Count 218 D
Sodium Pending
Potassium Pending
Chloride Pending
Carbon Dioxide Pending
BUN Pending
Creatinine Pending
Glucose Pending
Calcium Pending
Total Bilirubin Pending
AST Pending
ALT Pending
Alkaline Phosphatase Pending
Vital Signs:
Vital Signs
Temp Pulse Resp BP Pulse Ox
98.2 F 86 16 116/53 98
11/26/23 07:52 11/26/23 07:52 11/26/23 07:52 11/26/23 07:52 11/26/23 07:52
I&O
11/25/23 11/26/23 11/27/23
06:59 06:59 06:59
Intake Total 1800 / 1800 1340 / 1340
Balance 1800 / 1800 1340 / 1340
Review of Systems
-
History Source: Patient
All other systems: Not reviewed unless documented
Physical Exam
-
General: Comfortable and Obese
HEENT: Oxygen
Respiratory: Clear to Auscultation
Cardiac: Regular Rhythm and S1/S2; Negative Murmur or Rub
GI: Soft, Nontender and Nondistended
Musculoskeletal: No Edema
Neuro: Awake, Alert, No Motor Deficits and Nonfocal/Grossly Intact
Psych: Calm
Data Reviewed
-
Diagnostic Radiology: Image personally visualized and interpreted and Report Reviewed by me
MRI: Report Reviewed by me
--- NOTE | 2023-11-26 11:57 | CM ---
Patient seen with family, declines needs going home. CM offered VN to patient for home PT/OT services, [place], she is not home bound, and does not feel like she needs VN. CM reviewed IMM, signed, placed
in chart. Patient very thankful for care provided to her during hospital stay. CM will continue to follow for discharge planning needs.
Plan; home with family, no needs.
[2023-11-26] MEDS: FLUSH (NSS) IV ×2 (12:41→12:42)
--- NOTE | 2023-11-26 12:57 | W.DS.TRANS ---
DC Summary - Pay Station Attendant
-
Discharge Instructions:
Discharge Diagnosis/Procedures Ecoli bacteremia/UTI and sepsis, metabolic
encephalopathy.
Diet Regular
Activity As tolerated
Driving Restrictions No driving
Bathing Restrictions OK to Shower
Blood Work bmp in 3 days with pcp
Other Services VN,PT
Instructions:
Stand-Alone Forms:
Changes to Home Medications: Yes
Discharge Medications:
DC Medications w/original date entered in [employer]
B-complex with vitamin C 1 cap PO DAILY Supplement 05/13/21
letrozole 2.5 mg tablet (Femara) 2.5 mg PO DAILY 10/28/21
palbociclib 125 mg tablet (Ibrance) 125 mg PO UD 10/28/21
zinc amino acid chelate 50 mg tablet 50 mg PO DAILY 10/28/21
chlorhexidine gluconate 0.12 % mouthwash 15 ml buccal BID 11/21/23
cholecalciferol (vitamin D3) 25 mcg (1,000 unit) tablet 25 mcg PO DAILY 11/21/23
famotidine 40 mg tablet 40 mg PO QPM 11/21/23
guaifenesin 600 mg tablet, extended release 12 hr (Mucus Relief ER) 600 mg PO BID 11/21/23
naproxen sodium 220 mg tablet (Aleve) 220 mg PO DAILYPRN PRN mild pain 11/21/23
valsartan 160 mg-hydrochlorothiazide 25 mg tablet 1 tab PO QPM 11/21/23
cefdinir 300 mg capsule 300 mg PO Q12 7 days #14 caps 11/26/23
Home Medication Changes
cefdinir 300 mg capsule 300 mg PO Q12 7 days #14 caps 11/26/23
Pending Results: No
[2023-11-26 12:58] LABS: ALT (SGPT) 27 U/L (0-35); AST (SGOT) 29 U/L (14-36); Alkaline Phosphatase 71 U/L (38-126); Blood Urea Nitrogen 24 mg/dl (7-17); Calcium 9.2 mg/dl (8.4-10.2); Carbon Dioxide 23 mmol/L (22-30); Chloride 100 mmol/L (98-107); Estimated Creatinine Clearance 49 ml/min; Glucose 103 mg/dl (70-99); Potassium 3.9 mmol/L (3.5-5.1); Sodium 136 mmol/L (135-145); Total Bilirubin 0.5 mg/dl (0.2-1.3); eGFR > 60.00
[2023-11-26] MEDS: KCL ELIXIR 40 MEQ PO (13:19)
--- NOTE | 2023-11-26 13:33 | PTCARENOTE ---
Hypokalemia discussed with patient and ---patient and verbalizing an understanding regarding K level and it's importance in regards to cardiac function. Dose of PO K given per order. Patient discharged to home with instruction to have
BMP dome by PCP.
--- NOTE | 2023-12-06 06:40 | ED.GENMED ---
History of Present Illness
General
Chief Complaint: Weakness
Source: family
Time Seen by Provider: 11/21/23 11:19
Travel History
Have you had any contact with someone who has COVID-19?: No
Do you have any symptoms of coronavirus? Fever > 100 degrees, chills, cough, shortness of breath, sore throat, loss of taste or smell, muscle aches, or headache?: No
History of Present Illness
History of Present Illness:
This is an addendum H&P. Patient presented with confusion right leg numbness. Started 2 to 3 days ago. Information mostly from family.
Past History
Past History
ED Past Medical History: Other (Metastatic breast CA)
ED Past Surgical History: None
Social History
Tobacco: Former smoker
Phy Exam
Physical Exam
Physical Exam:
GENERAL: Alert. [place] mildly confused. Mildly slow cognitive
EYE: Orbits normal.
NECK: Supple, no significant adenopathy.
ENT: Pharynx without erythema
CARDIAC: Regular rate and rhythm without any obvious murmurs.
LUNGS: Clear breath sounds,normal
ABDOMEN: Soft, without focal tenderness or distention
NEUROLOGICAL: Alert and oriented , grossly non-focal. No focality. No paresthesias no weakness
SKIN: Warm and dry, no rash or lesion, no discoloration, skin intact.
MUSCULOSKELETAL: No edema,no deformity.Good color
PSYCH: Normal and appropriate interaction.
Course
Orders/Labs/Results
Orders:
Orders
11/21/23 Lunch
Regular
At Your Request: Full Participation
Does patient need a safe tray?: No
11/21/23 11:35
EKG [Electrocardiogram (*1)] Urgent
Reason for Study: Fatigue / Weakness
EKG- Treatment ONCE
11/21/23 11:36
Complete Blood Count/With Diff Urgent
Comprehensive Metabolic Panel Urgent
Lactic Acid Urgent
Blood Culture Urgent
ROQUE Source: Blood/Venous
Specimen Description:
11/21/23 11:43
CT Head W/o Iv Contrast Urgent
Comment:
Reason For Exam: Change in mental status. Known breast CA.
IV Insert/Care/Rem.- Treatment PRN
Straight cath- Treatment ONCE
CR Chest - 2 Views Urgent
Comment:
Reason For Exam: fever change in ms
11/21/23 11:47
COVID-19 Antigen Urgent
Source: Nasal Swab
Blood Culture Urgent
ROQUE Source: Blood/Venous
Specimen Description:
Influenza A+B Rapid Molecular Urgent
ROQUE Source: Nasal Swab
Specimen Description:
11/21/23 12:01
Urinalysis Reflex To Culture Urgent
Date Specimen was Collected: 11/21/23
Time Specimen was Collected: 12:00
Urine Microscopic Reflex Cult Urgent
Urine Culture Urgent
ROQUE Source: U
Specimen Description:
Obtained by: Random
Date Specimen was Collected: 11/21/23
Time Specimen was Collected: 12:00
11/21/23 12:25
Cefepime HCl [Maxipime] 2,000 mg IV NOW STA
11/21/23 12:26
US Renal With Bladder Urgent
Comment: bladder not full ok, looking at ureteral jets
Reason For Exam: Fever weak pyelonephritis. Evaluate for hydroneph
11/21/23 13:29
Admit/Transfer Patient As Directed
Co-Sign Provider:
Level of Care: Inpatient admission
Assign to:: Medical/Surgical
Physician / Group: Oniel Mccracken
Diagnosis: Confusion, Weakness
Reason for Hospitalization: Confusion, Weakness
Expected length of stay greater than two midnights?: Yes
ELOS- Estimated Length of Stay in days: 3
I certify the patient meets the requirements for IP care: Yes
11/21/23 13:33
Code Status As Directed
Resuscitation Status: Do not resuscitate
Reached after discussion with pt or family/Healthcare POA: Yes
DNR Bracelet Application ONCE
11/21/23 13:37
MRI Brain [MR Brain W/o & With Contrast] Routine
Comment:
Reason For Exam: confusion, metastatic brain disease
Recent pill cam endoscopy?: No
11/21/23 14:07
Acetaminophen [Tylenol] 650 mg PO Q4HPRN PRN
11/21/23 15:20
Bisacodyl [Dulcolax] 10 mg RECTAL [id number] PRN
Docusate W/Senna [Senokot-S] 1 tablet PO BIDPRN PRN
Lactated Ringers [Lr] 1,000 ml IV 60 mls/hr
Ondansetron Injectable [Zofran] 4 mg IV Q6HPRN PRN
Polyethylene Glycol Powder [Miralax] 17 grams PO DAILYPRN PRN
11/21/23 15:20
Activity As Directed
Activity Level: With Assistance
Vital Signs As Directed
Frequency: Per unit guidelines
DX Deep Vein Thrombosis Video Routine
11/21/23 18:00
Enoxaparin Sodium [Lovenox] 40 mg SC QPM
Famotidine [Pepcid] 20 mg PO QPM
Hydrochlorothiazide [Oretic] 25 mg PO QPM
palbociclib [Ibrance] 125 mg PO QPM
11/21/23 20:00
Guaifenesin [Mucinex] 600 mg PO BID
11/22/23 08:00
Rxsxspkns-Alu-Uwqo [Femara] 2.5 mg PO DAILY
11/22/23 08:38
Basic Metabolic Panel IN AM
Complete Blood Count/No Diff IN AM
11/23/23 08:07
Basic Metabolic Panel IN AM
Complete Blood Count/No Diff IN AM
11/24/23 07:12
Basic Metabolic Panel IN AM
Complete Blood Count/No Diff IN AM
Abnormal Lab Results
11/21/23 11/21/23
11:36 12:01
RBC 2.77 L 10^6/uL
(4.20-5.40)
Hgb 10.1 L g/dL
(12.0-16.0)
Hct 28.6 L %
(37.0-47.0)
MCV 103.2 H fL
(81.0-99.0)
MCH 36.5 H pg
(27.0-31.0)
RDW 16.1 H %
(11.5-14.5)
Absolute Lymphs (auto) 0.2 L 10^3/uL
(1.2-3.4)
Immature Gran % 0.6 H %
(0-0.5)
Neutrophils % 91.6 H %
(42.2-75.2)
Lymphocytes % 3.6 L %
(20.5-51.1)
Carbon Dioxide 19 L mmol/L
(22-30)
BUN 31 H mg/dl
(7-17)
Creatinine 1.3 H mg/dL
(0.6-1.0)
Glucose 155 H mg/dl
(70-99)
Lactic Acid 2.7 H mmol/L
(0.7-2.0)
Ur Occult Blood Reflex 4+ A
(Negative)
Urine Nitrite (Reflex) Positive A
(Negative)
Leukocyte Esterase Rfl 2+ A
(Negative)
Urine RBC >100 A /HPF
(0-2)
Urine WBC (Reflex) 40-50 A /HPF
(0-5)
Urine Bacteria (Reflex) Many A
(Negative)
Urine Albumin (Reflex) 2+ A
(Neg - Trace)
11/21/23 11:36
11/21/23 11:36
Vital Signs
Initial and Last Documented VS:
Initial Vital Signs
Temp Pulse Resp BP Pulse Ox
100.0 F 123 18 192/89 95
11/21/23 11:12 11/21/23 11:12 11/21/23 11:12 11/21/23 11:12 11/21/23 11:12
Last Documented Vital Signs
Temp Pulse Resp BP Pulse Ox
98.2 F 86 16 116/53 98
11/26/23 07:52 11/26/23 07:52 11/26/23 07:52 11/26/23 07:52 11/26/23 07:52
*Radiology
Radiology exam reviewed: radiology read reviewed (Head CT unchanged old infarct.)
*Pulse Oximetry
Patient hypoxic: no
*EKG
Interpretation: abnormal
Comparison EKG: changes noted
Heart Rate: 110
Rate: tachycardiac
Rhythm: sinus
Wever: normal axis
Interval: normal interval
QRS Pattern: normal QRS
Ischemia: non-specific ST changes
*Critical Care Note
Total Time (30-74mins, 75-104mins- exclusive of procedures): Not Applicable
Data Reviewed
Review of Other/Old Records Reveals: Labs, Records and Testing
Update Note
Update Note:
Patient with a encephalopathy change in mental status. History of breast CA. Warrants further inpatient management and workup
ED Attending Note
-
Portions of this chart may have been created with voice recognition software.� Occasional wrong word or��sound alike� substitutions may have occurred due to the inherent limitations of voice recognition software.
Discharge Plan
Departure
Patient Disposition: Admit
Date of Disposition: 11/21/23
Time of Disposition: 12:45
Presentation/result/management discussed w/ accepting MD/DO: Hospitalist
Discharge Problem:
Encephalopathy/change in mental status, History of breast CA
Interventions
Interventions:
*General Assessment Last Done: 11/21/23 11:43
*Neglect/Abuse Screening Last Done: 11/21/23 11:18
ED- Fall Risk Assessment Last Done: 11/21/23 15:11
*Nursing Disposition Last Done: 11/21/23 15:11
ED- Cardiac Assessment Last Done: 11/21/23 11:42
ED- Neurological Assessment Last Done: 11/21/23 11:42
ED- Pulmonary Assessment Last Done: 11/21/23 11:42
Discharge Date and Time
Discharge Date/Time: 11/21/23 15:27
== END 2023-11-26 13:52 | disposition home or self-care (01) | DRG 871 ==
LOC: 4 WEST ACU 13:58
PROVIDERS: ADMITTING PHYSICIAN Hospitalist; ATTENDING PHYSICIAN Internal Medicine; CONSULT PHYSICIAN Internal Medicine Infectious Disease; EMERGENCY PHYSICIAN Emergency Medicine; OTHER PHYSICIAN Nurse Practitioner Family
DX: A41.51 Sepsis due to Escherichia coli [E. coli] (principal); G92.8 Other toxic encephalopathy; C78.00 Secondary malignant neoplasm of unspecified lung; C78.7 Secondary malignant neoplasm of liver and intrahepatic bile duct; C79.51 Secondary malignant neoplasm of bone; N39.0 Urinary tract infection, site not specified; N17.9 Acute kidney failure, unspecified; E87.1 Hypo-osmolality and hyponatremia; Z87.891 Personal history of nicotine dependence; C50.919 Malignant neoplasm of unspecified site of unspecified female breast; I10 Essential (primary) hypertension; Z66 Do not resuscitate; E87.6 Hypokalemia; N18.31 Chronic kidney disease, stage 3a; Z11.52 Encounter for screening for COVID-19
CPT/HCPCS: 51701; 70450; 70553; 71046; 76770; 80048; 80053; 80202; 81003; 81015; 82607; 82728; 82746; 82962; 83540; 83550; 83605; 85025; 85027; 85045; 87040; 87077; 87086; 87149; 87186; 87205; 87502; 87641; 87811; 93005; 96374; 96376; 97116; 97162; 97166; 99285; A9575

== ENCOUNTER → 2023-12-10 07:47 | Outpatient (REF) | payer OTHER, SELFPAY | LOC: PET 07:47 | PROVIDERS: ATTENDING PHYSICIAN Internal Medicine Hematology & Oncology | DX: C50.111 Malignant neoplasm of central portion of right female breast (principal) | CPT/HCPCS: 78815; A9552 ==

== ENCOUNTER → 2024-04-01 14:03 | Outpatient (REF) | payer OTHER, SELFPAY ==
[2024-04-01 15:23] LABS: Blood Urea Nitrogen 38 mg/dl (7-17); Calcium 9.8 mg/dl (8.4-10.2); Carbon Dioxide 25 mmol/L (22-30); Chloride 101 mmol/L (98-107); Glucose 117 mg/dl (70-99); Potassium 3.9 mmol/L (3.5-5.1); Sodium 144 mmol/L (135-145); eGFR 28.76
== END ==
LOC: REG 14:03
PROVIDERS: ATTENDING PHYSICIAN Internal Medicine Hematology & Oncology
DX: C50.111 Malignant neoplasm of central portion of right female breast (principal); C79.51 Secondary malignant neoplasm of bone; C78.00 Secondary malignant neoplasm of unspecified lung; D53.9 Nutritional anemia, unspecified
CPT/HCPCS: 36415; 80048

== ENCOUNTER 2024-04-02 11:49 | Outpatient (RCR) | payer OTHER, SELFPAY | END 2024-04-02 23:59 | disposition home or self-care (01) | LOC: RPT 11:49 | PROVIDERS: ATTENDING PHYSICIAN Internal Medicine Hematology & Oncology | DX: I89.0 Lymphedema, not elsewhere classified (principal); C50.111 Malignant neoplasm of central portion of right female breast; C79.51 Secondary malignant neoplasm of bone; C78.00 Secondary malignant neoplasm of unspecified lung; Z73.6 Limitation of activities due to disability | CPT/HCPCS: 97140; 97163; 97535 ==

== ENCOUNTER 2024-04-30 11:22 | Outpatient (RCR) | payer OTHER, SELFPAY | END 2024-04-30 23:59 | disposition home or self-care (01) | LOC: RPT 11:22 | PROVIDERS: ATTENDING PHYSICIAN Internal Medicine Hematology & Oncology | DX: I97.2 Postmastectomy lymphedema syndrome (principal); C50.111 Malignant neoplasm of central portion of right female breast; C79.51 Secondary malignant neoplasm of bone; C78.00 Secondary malignant neoplasm of unspecified lung; Z73.6 Limitation of activities due to disability | CPT/HCPCS: 97140; 97535 ==

== ENCOUNTER → 2024-05-26 09:55 | Outpatient (REF) | payer OTHER, SELFPAY | LOC: PET 09:55 | PROVIDERS: ATTENDING PHYSICIAN Internal Medicine Hematology & Oncology | DX: C50.111 Malignant neoplasm of central portion of right female breast (principal) | CPT/HCPCS: 78815; A9552 ==

== ENCOUNTER 2024-06-04 13:04 | Outpatient (RCR) | payer OTHER, SELFPAY | END 2024-06-04 23:59 | disposition home or self-care (01) | LOC: RPT 13:04 | PROVIDERS: ATTENDING PHYSICIAN Internal Medicine Hematology & Oncology | DX: I97.2 Postmastectomy lymphedema syndrome (principal); C50.111 Malignant neoplasm of central portion of right female breast; C50.912 Malignant neoplasm of unspecified site of left female breast; C79.51 Secondary malignant neoplasm of bone; C78.00 Secondary malignant neoplasm of unspecified lung; Z73.6 Limitation of activities due to disability | CPT/HCPCS: 97110; 97140 ==

== ENCOUNTER 2024-07-02 10:59 | Outpatient (RCR) | payer OTHER, SELFPAY | END 2024-07-02 23:59 | disposition home or self-care (01) | LOC: RPT 10:59 | PROVIDERS: ATTENDING PHYSICIAN Internal Medicine Hematology & Oncology | DX: I97.2 Postmastectomy lymphedema syndrome (principal); C50.111 Malignant neoplasm of central portion of right female breast; C79.51 Secondary malignant neoplasm of bone; C78.00 Secondary malignant neoplasm of unspecified lung; Z73.6 Limitation of activities due to disability | CPT/HCPCS: 97110; 97112; 97140 ==

== ENCOUNTER 2024-07-16 10:49 | Outpatient (RCR) | payer OTHER, SELFPAY | END 2024-07-16 23:59 | disposition home or self-care (01) | LOC: RPT 10:49 | PROVIDERS: ATTENDING PHYSICIAN Internal Medicine Hematology & Oncology | DX: I97.2 Postmastectomy lymphedema syndrome (principal); C50.111 Malignant neoplasm of central portion of right female breast; C79.51 Secondary malignant neoplasm of bone; C78.00 Secondary malignant neoplasm of unspecified lung; Z73.6 Limitation of activities due to disability | CPT/HCPCS: 97110; 97140 ==

== ENCOUNTER → 2024-08-13 13:52 | Outpatient (REF) | payer OTHER, SELFPAY ==
[2024-08-13 14:03] LABS: % Basophils 0.8 % (0-2); % Eosinophils 1.1 % (0-6); % Immature Granulocytes 0.3 % (0-0.5); % Lymphocytes 24.7 % (20.5-51.1); % Monocytes 7.9 % (1.7-9.3); % Neutrophils 65.2 % (42.2-75.2); Absolute Lymphocytes 0.9 10^3/uL (1.2-3.4); Absolute Monocytes 0.3 10^3/uL (0.1-0.6); Absolute Neutrophils 2.4 10^3/uL (1.4-6.5); Hematocrit 23.9 % (37.0-47.0); Hemoglobin 8.2 g/dL (12.0-16.0); Mean Corp Hgb Conc. 34.3 g/dL (33.0-37.0); Mean Corpuscular Hgb 36.3 pg (27.0-31.0); Mean Corpuscular Volume 105.8 fL (81.0-99.0); Mean Platelet Volume 9.2 fL (7.4-10.4); Platelet Count 204 10^3/uL (130-400); Red Blood Cell Count 2.26 10^6/uL (4.20-5.40); Red Cell Dist. Width 14.3 % (11.5-14.5); White Blood Cell Count 3.7 10^3/uL (4.8-10.8)
== END ==
LOC: OIDL 13:52
PROVIDERS: ATTENDING PHYSICIAN Internal Medicine Hematology & Oncology
DX: C50.111 Malignant neoplasm of central portion of right female breast (principal)
CPT/HCPCS: 85025

== ENCOUNTER 2024-08-27 13:09 | Outpatient (RCR) | payer OTHER, SELFPAY | END 2024-08-27 23:59 | disposition home or self-care (01) | LOC: RPT 13:09 | PROVIDERS: ATTENDING PHYSICIAN Internal Medicine Hematology & Oncology | DX: I97.2 Postmastectomy lymphedema syndrome (principal); C50.111 Malignant neoplasm of central portion of right female breast; C79.51 Secondary malignant neoplasm of bone; C78.00 Secondary malignant neoplasm of unspecified lung; Z73.6 Limitation of activities due to disability; M79.601 Pain in right arm; M25.511 Pain in right shoulder | CPT/HCPCS: 97140 ==

== ENCOUNTER → 2024-09-24 15:47 | Outpatient (REF) | payer OTHER, SELFPAY ==
[2024-09-24 13:51] LABS: % Basophils 1.2 % (0-2); % Eosinophils 1.5 % (0-6); % Immature Granulocytes 0.4 % (0-0.5); % Lymphocytes 20.7 % (20.5-51.1); % Monocytes 13.2 % (1.7-9.3); Absolute Basophils 0.1 10^3/uL (0-0.2); Absolute Eosinophils 0.1 10^3/uL (0-0.7); Absolute Lymphocytes 1.5 10^3/uL (1.2-3.4); Absolute Neutrophils 4.6 10^3/uL (1.4-6.5); Hematocrit 26.7 % (37.0-47.0); Hemoglobin 8.9 g/dL (12.0-16.0); Mean Corp Hgb Conc. 33.3 g/dL (33.0-37.0); Mean Corpuscular Hgb 35.3 pg (27.0-31.0); Platelet Count 374 10^3/uL (130-400); Red Blood Cell Count 2.52 10^6/uL (4.20-5.40); Red Cell Dist. Width 14.6 % (11.5-14.5); White Blood Cell Count 7.3 10^3/uL (4.8-10.8)
== END ==
LOC: OIDL 15:47
PROVIDERS: ATTENDING PHYSICIAN Internal Medicine Hematology & Oncology
DX: C50.111 Malignant neoplasm of central portion of right female breast (principal); C79.51 Secondary malignant neoplasm of bone; C78.00 Secondary malignant neoplasm of unspecified lung; D53.9 Nutritional anemia, unspecified; N18.30 Chronic kidney disease, stage 3 unspecified; G62.0 Drug-induced polyneuropathy
CPT/HCPCS: 85025

== ENCOUNTER → 2024-10-22 14:57 | Outpatient (REF) | payer OTHER, SELFPAY ==
[2024-10-22 15:02] LABS: % Basophils 0.4 % (0-2); % Eosinophils 1.1 % (0-6); % Immature Granulocytes 0.4 % (0-0.5); % Lymphocytes 11.8 % (20.5-51.1); % Monocytes 7.8 % (1.7-9.3); % Neutrophils 78.5 % (42.2-75.2); Absolute Basophils 0.1 10^3/uL (0-0.2); Absolute Eosinophils 0.2 10^3/uL (0-0.7); Absolute Immature Granulocytes 0.1 10^3/uL (0-0.05); Absolute Monocytes 1.3 10^3/uL (0.1-0.6); Hematocrit 41.2 % (37.0-47.0); Hemoglobin 13.8 g/dL (12.0-16.0); Mean Corp Hgb Conc. 33.5 g/dL (33.0-37.0); Mean Corpuscular Hgb 30.7 pg (27.0-31.0); Mean Corpuscular Volume 91.6 fL (81.0-99.0); Mean Platelet Volume 9.9 fL (7.4-10.4); Platelet Count 478 10^3/uL (130-400); Red Cell Dist. Width 15.4 % (11.5-14.5); White Blood Cell Count 16.6 10^3/uL (4.8-10.8)
== END ==
LOC: OIDL 14:57
PROVIDERS: ATTENDING PHYSICIAN Nurse Practitioner Adult Health
DX: C50.111 Malignant neoplasm of central portion of right female breast (principal); C79.51 Secondary malignant neoplasm of bone; C78.00 Secondary malignant neoplasm of unspecified lung; D53.9 Nutritional anemia, unspecified; D63.1 Anemia in chronic kidney disease; N18.30 Chronic kidney disease, stage 3 unspecified; G62.0 Drug-induced polyneuropathy
CPT/HCPCS: 85025

== ENCOUNTER → 2025-01-14 15:17 | Outpatient (REF) | payer OTHER, SELFPAY ==
[2025-01-14 14:42] LABS: % Basophils 1.4 % (0-2); % Eosinophils 0.8 % (0-6); % Immature Granulocytes 2.1 % (0-0.5); % Monocytes 11.6 % (1.7-9.3); % Neutrophils 66.1 % (42.2-75.2); Absolute Basophils 0.1 10^3/uL (0-0.2); Absolute Eosinophils 0.1 10^3/uL (0-0.7); Absolute Immature Granulocytes 0.2 10^3/uL (0-0.05); Absolute Lymphocytes 1.3 10^3/uL (1.2-3.4); Absolute Monocytes 0.8 10^3/uL (0.1-0.6); Absolute Neutrophils 4.8 10^3/uL (1.4-6.5); Hemoglobin 9.3 g/dL (12.0-16.0); Mean Corp Hgb Conc. 33.2 g/dL (33.0-37.0); Mean Corpuscular Hgb 33.9 pg (27.0-31.0); Mean Corpuscular Volume 102.2 fL (81.0-99.0); Mean Platelet Volume 9.4 fL (7.4-10.4); Platelet Count 344 10^3/uL (130-400); Red Blood Cell Count 2.74 10^6/uL (4.20-5.40); Red Cell Dist. Width 21.2 % (11.5-14.5); White Blood Cell Count 7.2 10^3/uL (4.8-10.8)
== END ==
LOC: OIDL 15:17
PROVIDERS: ATTENDING PHYSICIAN Nurse Practitioner Primary Care
DX: C50.111 Malignant neoplasm of central portion of right female breast (principal); C79.51 Secondary malignant neoplasm of bone; C78.00 Secondary malignant neoplasm of unspecified lung; D53.9 Nutritional anemia, unspecified; D63.1 Anemia in chronic kidney disease; N18.30 Chronic kidney disease, stage 3 unspecified; G62.0 Drug-induced polyneuropathy; I73.9 Peripheral vascular disease, unspecified
CPT/HCPCS: 85025

== ENCOUNTER → 2025-02-05 09:53 | Outpatient (REF) | payer OTHER, SELFPAY | LOC: PET 09:53 | PROVIDERS: ATTENDING PHYSICIAN Internal Medicine Hematology & Oncology | DX: C50.111 Malignant neoplasm of central portion of right female breast (principal) | CPT/HCPCS: 78815; A9552 ==

== ENCOUNTER → 2025-05-25 12:11 | Outpatient (REF) | payer OTHER, SELFPAY ==
[2025-05-25 12:24] LABS: Glucose 86 mg/dl (70-99)
== END ==
LOC: PET 12:11
PROVIDERS: ATTENDING PHYSICIAN Internal Medicine Hematology & Oncology
DX: C50.111 Malignant neoplasm of central portion of right female breast (principal); C79.51 Secondary malignant neoplasm of bone; D53.9 Nutritional anemia, unspecified; D63.1 Anemia in chronic kidney disease; N18.30 Chronic kidney disease, stage 3 unspecified; I73.9 Peripheral vascular disease, unspecified
CPT/HCPCS: 36415; 78815; 82947; A9552